=== PATIENT | female | born 1990 | race Caucasian/White ===

== ENCOUNTER → 2016-07-19 | Outpatient (CLI) | payer BC, OTHER ==
[2016-07-19 19:35] LABS: MANUAL MICROSCOPIC REQUIRED? NO; URINE APPEARANCE CLEAR (CLEAR); URINE BILIRUBIN NEG (NEG); URINE COLOR YELLOW; URINE NITRITE NEG (NEG); URINE SPECIFIC GRAVITY 1.025 (1.000-1.030); UROBILINOGEN NEG (NEG)
[2016-07-19 19:41] LABS: REVIEW REQ? NO
== END | disposition home or self-care (01) ==
LOC: C.LABSPEC 17:40
PROVIDERS: ATTEND Obstetrics & Gynecology
DX: O09.219 Supervision of pregnancy with history of pre-term labor, unspecified trimester (principal)

== ENCOUNTER → 2016-07-20 | Outpatient (CLI) | payer OTHER ==
[2016-07-20 11:21] LABS: BASO % 0.1 %; BASO ABS # 0.01 K/uL (0-0.2); COMPLETE YES; EOS % 0.5 %; HEMATOCRIT 40.4 % (37-47); IG% 0.2 %; LYMPH % 22.2 %; MEAN CORPUSCULAR HEMOGLOBIN 31.6 pg (25-34); MEAN CORPUSCULAR HGB CONC 35.1 g/dl (32-36); MEAN PLATELET VOLUME 9.5 fL (7.4-10.4); PLATELET COUNT 329 K/uL (130-400); RED BLOOD COUNT 4.49 M/uL (4.2-5.4); WHITE BLOOD COUNT 8.56 K/uL (4.8-10.8)
[2016-07-22 00:50] LABS: CHLAMYDIA TRACH RNA*** NOT DETECTED (NOT DETECTED); GC (NEIS GONORRHOEAE)RNA** NOT DETECTED (NOT DETECTED)
== END | disposition home or self-care (01) ==
LOC: C.LAB1850 10:32
PROVIDERS: ATTEND Obstetrics & Gynecology
DX: O09.219 Supervision of pregnancy with history of pre-term labor, unspecified trimester (principal)

== ENCOUNTER → 2016-09-18 | Outpatient (CLI) | payer OTHER ==
[~2016-09-18] MED LIST: PRENTAB26 PO
[2016-09-18 13:37] LABS: GTGD 50 Grams
== END | disposition home or self-care (01) ==
LOC: C.LAB1850 10:48
PROVIDERS: ATTEND Obstetrics & Gynecology
DX: O09.212 Supervision of pregnancy with history of pre-term labor, second trimester (principal); Z3A.00 Weeks of gestation of pregnancy not specified

== ENCOUNTER → 2016-12-15 | Outpatient (CLI) | payer OTHER ==
[2016-12-15 11:47] LABS: URINE APPEARANCE CLEAR (CLEAR); URINE BILIRUBIN NEG (NEG); URINE COLOR YELLOW; URINE EPITHELIAL CELL AUTO >30 /lpf (0-5); URINE NITRITE NEG (NEG); URINE SPECIFIC GRAVITY 1.014 (1.000-1.030); UROBILINOGEN NEG (NEG)
[2016-12-15 11:51] LABS: MANUAL MICROSCOPIC REQUIRED? NO; REVIEW REQ? NO
[2016-12-15 13:54] LABS: GTGD 50 Grams
== END | disposition home or self-care (01) ==
LOC: C.LAB1850 10:28
PROVIDERS: ATTEND Obstetrics & Gynecology
DX: O09.212 Supervision of pregnancy with history of pre-term labor, second trimester (principal)

== ENCOUNTER → 2017-02-05 | Outpatient (CLI) | payer OTHER | END | disposition home or self-care (01) | LOC: C.LABSPEC 13:43 | PROVIDERS: ATTEND Obstetrics & Gynecology | DX: O09.213 Supervision of pregnancy with history of pre-term labor, third trimester (principal) ==

== ENCOUNTER 2017-02-24 05:29 | Inpatient (IN) | payer OTHER ==
[~2017-02-24] VITALS: Ht 165.1 cm; Wt 84.1 kg
[2017-02-24] MEDS ORDERED: LACTATED RINGER'S 1000ML 1,000 ML IV PRN (06:19)
[2017-02-24] MEDS ORDERED: LACTATED RINGER'S 1000ML 1,000 ML IV SCH (06:19)
[2017-02-24 06:20] VITALS: Ht 165.1 cm; Wt 84.1 kg
[2017-02-24] MEDS ORDERED: PRENTAB26 PO (06:26)
[2017-02-24 06:55] LABS: HEMATOCRIT 36.5 % (37-47); MEAN CELL VOLUME 92.2 fL (80-100); MEAN CORPUSCULAR HEMOGLOBIN 32.6 pg (25-34); MEAN CORPUSCULAR HGB CONC 35.3 g/dl (32-36); PLATELET COUNT 246 K/uL (130-400); RED BLOOD COUNT 3.96 M/uL (4.2-5.4); WHITE BLOOD COUNT 10.71 K/uL (4.8-10.8)
[2017-02-24] MEDS ORDERED: BUPIVACAINE 0.25% 30 ML VIAL ONE (06:57)
[2017-02-24] MEDS ORDERED: EpHEDrine SULFATE INJ 50 MG/ML AMP ONE (06:57)
[2017-02-24] MEDS ORDERED: FENTANYL 2MCG/ML ROPIV 1.25MG/ML 100ML BAG EPI ONE (06:57)
[2017-02-24] MEDS ORDERED: FENTANYL CITRATE INJ 50 MCG/1 ML 2 ML VIAL ONE (06:58)
[2017-02-24] MEDS ORDERED: LACTATED RINGER'S 1000ML 500 ML IV PRN ×2 (07:55→08:40)
[2017-02-24] MEDS ORDERED: NALOXONE HCL INJ 1 MG in SODIUM CHLORIDE 0.9% 1000ML 1,000 ML IV PRN (07:55)
[2017-02-24] MEDS ORDERED: EpHEDrine SULFATE INJ 50 MG/ML AMP IV PRN (08:00)
[2017-02-24] MEDS ORDERED: ONDANSETRON INJ 2 MG/ML 2 ML VIAL IV PRN (08:00)
[2017-02-24] MEDS ORDERED: NALBUPHINE HCL INJ 10 MG/ML AMP IV PRN (08:00)
[2017-02-24] MEDS ORDERED: FENTANYL 2MCG/ML ROPIV 1.25MG/ML 100ML BAG EPI PRN (08:00)
[2017-02-24] MEDS ORDERED: DiphenhydrAMINE HCL 50 MG/ML VIAL IV PRN (08:00)
[2017-02-24] MEDS ORDERED: NALOXONE HCL 0.4 MG/1 ML VIAL/CARP IV PRN (08:00)
[2017-02-24] MEDS ORDERED: OXYTOCIN 30 UNITS/500ML NSS IV PRN ×2 (08:45→09:30)
[2017-02-24] MEDS ORDERED: LANOLIN OINT EXT PRN ×2 (09:30)
[2017-02-24] MEDS ORDERED: ACETAMINOPHEN/CODEINE 300/30MG TAB PO PRN ×2 (09:30)
[2017-02-24] MEDS ORDERED: ACETAMINOPHEN 325 MG TAB PO PRN (09:30)
[2017-02-24] MEDS ORDERED: SUPERCREAM 0.870 % 15GM JAR EXT PRN (09:30)
[2017-02-24] MEDS ORDERED: BENZOCAINE 20% AER SPR 82.5 GM CAN EXT PRN (09:30)
[2017-02-24] MEDS ORDERED: HYDROCORTISONE ACETATE 25 MG SUPP PR PRN (09:30)
--- NOTE | 2017-02-24 09:39 | DELIVERY SUMMARY ---
DATE OF OPERATION: 02/24/2017 FINDINGS: Viable female with Apgars of 8 and 9, baby delivered spontaneously over a midline second-degree laceration. Cord blood samples obtained. Placenta delivered spontaneously. Laceration repaired with 4-0 Vicryl in routine fashion. Estimated blood loss is 300 mL. LABOR NOTE: This patient is a 26-year-old 2, para 0-1-0-1 with EDC of 05 March at 38+ plus weeks gestational age who presented to labor and delivery with spontaneous rupture of membranes. The patient states the membranes ruptured early this morning with subsequent onset of contractions. No vaginal bleeding. The patient's course has been remarkable for a previous 33 week delivery. Because of this she has been on progesterone injections throughout the second and third trimester. The patient has had a benign course. Blood type is 0+, antibody negative, rubella immune, hepatitis B negative. She had a normal 1-hour Glucola x2 and a negative third trimester beta strep culture. Upon admission, the patient was 4 cm dilated, 80% effaced and -1 station with gross rupture. She was having contractions and was uncomfortable and anesthesia was consulted and an epidural was placed. Following the epidural, the patient progressed to full dilation and began her second stage. She pushed for approximately 10 minutes delivering the viable female . The cord was clamped and cut. Cord blood samples were obtained. Placenta was delivered spontaneously. Inspection of the perineum showed a midline second-degree laceration which was repaired with 4-0 Vicryl. Estimated blood loss 300 mL. Sponge and needle count was correct. I attest to the content of the Intraoperative Record and any orders documented therein. Any exception s are noted below.
[2017-02-24 12:00] VITALS: BP 113/66; PULSE 99; TEMP 36.5
[2017-02-24 15:30] VITALS: BP 120/73; PULSE 85; TEMP 36.5
[2017-02-24] MEDS: IBUPROFEN 600 MG TAB PO PRN ×2 (18:14→22:23)
[2017-02-24 19:30] VITALS: BP 123/70; PULSE 82; TEMP 36.7
[2017-02-24] MEDS: DOCUSATE SODIUM 100 MG CAP PO SCH (20:37)
[2017-02-24 23:50] VITALS: BP 107/69; PULSE 92; TEMP 36.6
[2017-02-25 03:25] VITALS: BP 107/66; PULSE 88; TEMP 36.6
[2017-02-25] MEDS: IBUPROFEN 600 MG TAB PO PRN (03:28)
[2017-02-25 06:35] LABS: HEMATOCRIT 39.5 % (37-47)
[2017-02-25 07:00] VITALS: BP 99/65; PULSE 86; TEMP 36.7; O2SAT 97
--- NOTE | 2017-02-25 07:51 | Progress Note ---
Subjective Feb 25, 2017. Subjective conversation w/ patient (want to go home), physical exam Ambulation: ambulating normally Diet Tolerance: Regular Diet Feeding Type: Breast Feeding Objective Vital Signs Date Time Temp Pulse Resp B/P (MAP) Pulse Ox O2 Delivery O2 Flow Rate FiO2 02/25/17 07:00 36.7 86 16 99/65 (76) 97 Room Air 02/25/17 03:25 36.6 88 16 107/66 (80) Room Air 02/24/17 23:50 36.6 92 18 107/69 (82) Room Air 02/24/17 23:50 Room Air 02/24/17 19:30 36.7 82 20 123/70 (87) Room Air 02/24/17 15:30 Room Air 02/24/17 15:30 36.5 85 20 120/73 (89) Room Air 02/24/17 12:00 36.5 99 22 113/66 (82) Physical Exam General Appearance: WELL-APPEARING, NO APPARENT DISTRESS Fundus: Firm, Non-Tender Extremities: no calf tenderness Laboratory Results Last 24 Hours Test 02/25/17 06:08 Hemoglobin 13.7 g/dL Hematocrit 39.5 % Assessment and Plan Post- Day#: 1 Continue Routine Care: - doing well - desires d/c - instructions given - f/u in 6 weeks
--- NOTE | 2017-02-25 07:52 | Discharge Instructions ---
Discharge Instructions Date of Service Feb 25, 2017. Admission Reason for Admission: Spontaneous Onset Of Labor Discharge Discharge Diagnosis / Problem: same Discharge Goals Goal(s): Routine recovery after delivery Medications Continue Dispensed Medications: supercream, dermaplast, tucks Activity Recommendations Activity Limitations: as noted below . Instructions / Follow-Up Instructions / Follow-Up ACTIVITY RECOMMENDATIONS: * Gradual return to full activity over the next 2-3 weeks. * No lifting - nothing heavier than baby over the next 2-3 weeks. * Do not engage in vigorous exercise, sexual activity or sports until cleared by your physician. * Do not drive or operate any motorized equipment until cleared by your physician. * You may shower/bathe daily. MEDICATIONS: For discomfort or pain, you may use Acetaminophen (Tylenol), Ibuprofen (Advil), or Naproxen (Aleve) following the package directions. For constipation you may use Colace following the package directions. BREAST CARE: If you are not breast feeding: * Wear a supportive bra 24 hours a day for one to two weeks. * Avoid stimulating your breasts and nipples as much as possible during the first few weeks after delivery. * When taking a shower, have the warm water hit your back, not breasts. * When your breasts feel full, apply ice packs. Usually three to four times a day helps ease the discomfort. * Take a mild pain medication (Tylenol / Motrin) when you are uncomfortable. If breast feeding: * Use breast milk to lubricate nipples. Lansinoh cream may be used for sore nipples. You do not need to remove cream prior to breast feeding. If using a different brand of cream, check the label for directions regarding removal of cream prior to nursing. * Wear a supportive bra. * If having problems with breasts or breast feeding, call a corporate health consultant or your health care provider. EPISIOTOMY CARE: After delivery, if you have an episiotomy (stitches), the following steps will ease discomfort and aid healing. * For the first 24 hours after delivery, place ice packs next to your episiotomy to help reduce swelling. * After the first 24 hour-period, sitz baths, either portable or in the tub, are suggested. A shower with a shower arm sprayed over the episiotomy may be comforting. * Ivelises care should be done after each voiding and bowel movement. Squirt warm water from a plastic bottle over the perineum (region of the body between the anus and urinary opening) and pat dry. * Use Dermoplast to ease discomfort. Shake container. [place] directly over the episiotomy. Place a Tucks on a clean sanitary pad next to your episiotomy. SPECIAL CARE INSTRUCTIONS: When you are discharged from the hospital, it is important for you to follow the instructions listed below: * During the first week at home, you should be able to care for yourself and your baby. In addition, the usual light household activities are encouraged. * Limit your activities to the way you feel. Do not try to clean the house or move furniture. Be sensible. * If you actively engage in sports and have done so up until the time of your delivery, you may resume these activities as soon as you feel able. This may take up to one month or even longer. Use good judgment. * Continue to take your vitamins for at least six weeks after the of your baby. * Your diet need not be limited unless you were on a special diet before your delivery. Breast-feeding mothers need around 2500 calories per day and at least 64-80 ounces of fluid per day (8 to 10 glasses). * You should eat foods from the four major food groups. Crash diets or fad diets are to be avoided. Eating lean meats, fresh fruits and vegetables, low-fat dairy products, high fiber foods and a regular exercise program, will help you get back to your pre- weight without putting your health at risk. * Constipation is sometimes a problem after delivery. Take a mild laxative as needed. If breast feeding, Milk of Magnesia is acceptable to use. You may use a suppository or Fleets enema if no episiotomy. * A daily shower or tub bath is suggested. Be sure to thoroughly and gently dry the perineum. * A bloody vaginal discharge will usually continue until around four weeks post . A small amount of bleeding may continue for as long as six weeks. Vaginal discharge changes from the bright red bleeding after delivery to pink then brownish and finally yellowish-pink before becoming white and disappearing. * Bleeding may increase with activity. Your first period may come in 4-8 weeks. If you are breast feeding, your period may be delayed even longer. * [place] (sex) can begin whenever both you and your partner feel comfortable and do not have any form of genital infection. It is recommended that you wait at least six weeks for internal and external healing to occur. If you have questions, please talk to your health care practitioner. A condom should be used to prevent infection and . * Foreplay, gentle intercourse and lubrication is very important the first several times to prevent pain. A water-based lubricant such as K-Y jelly or Astroglide may be used. * If you have RH negative blood and your baby is RH positive, you will receive RHOGAM by injection prior to discharge. The nurse will give you a card to keep with you that has the date and place that you received RHOGAM after delivery. * During your care, you had a Rubella screen done to check for the presence of rubella antibodies in your blood. If your test was negative, you will receive a Rubella vaccine prior to discharge. This vaccine may cause a fever, soreness at the injection site and flu-like symptoms. If these symptoms persist, notify your health care practitioner. is not advised for one month after a Rubella vaccine. * Verbalizes understanding of car seat law as reviewed with patient nursing. * Car Seat hand-out given and reviewed with patient by nursing. * Shaken baby information reviewed with patient by nursing. Call you doctor if: * Heavy bleeding (saturating several pads an hour) or passing clots the size of your fist. * A fever >101 degrees F (38.3 degrees C) on two occasions four hours apart and /or chills. * Unusual pain in the pelvic or vaginal areas. * "Baby Blues" lasting longer than two weeks. If you have any questions or concerns, call your health care practitioner at . FOLLOW UP VISIT: * Please call the office at to schedule a 6 week examination. It is important you keep this appointment. It is important for you to make arrangements for either yearly or twice yearly check-ups thereafter. Current Hospital Diet Patient's current hospital diet: Regular OB Diet Discharge Diet Recommended Diet: Regular OB Diet Procedures Procedures Performed: Vaginal Delivery Pending Studies Studies pending at discharge: no Medical Emergencies . Who to Call and When: Medical Emergencies: If at any time you feel your situation is an emergency, please call 911 immediately. . Non-Emergent Contact Non-Emergency issues call your: Vice President Investor Relations Call Non-Emergent contact if: you have a fever, temperature is above 100.5 . . "Provider Documentation" section prepared by Pedro Avila. . VTE Core Measure Inpt VTE Proph given/why not?: Treatment not indicated
[2017-02-25] MEDS ORDERED: PRENATAL VITAMIN TAB PO SCH (08:00)
[2017-02-25] MEDS ORDERED: FERROUS SULFATE 325 MG TAB PO SCH (08:00)
[2017-02-25] MEDS: DOCUSATE SODIUM 100 MG CAP PO SCH (08:02)
[2017-02-25 09:57] VITALS: BP_DIAS 65; PULSE 86; TEMP 36.7
[2017-02-25] MEDS ORDERED: DIPHTHERIA/TETANUS/PERTUSSIS 0.5 ML SYR/VIAL IM. ONE (10:00)
[2017-02-25] MEDS ORDERED: BISACODYL 5 MG TABEC PO SCH (20:00)
== END 2017-02-25 10:56 | disposition home or self-care (01) | DRG 775 ==
LOC: C.OPB 05:29 → C.LD 05:30 → C.OPB 06:22 → C.OBG 12:08
PROVIDERS: ADMIT Obstetrics & Gynecology; ATTEND Obstetrics & Gynecology
PROC: 10E0XZZ Delivery of Products of Conception, External Approach (ICD-10-PCS; principal; 2017-02-24)
PROC: 0KQM0ZZ Repair Perineum Muscle, Open Approach (ICD-10-PCS; principal; 2017-02-24)
DX: O70.1 Second degree perineal laceration during delivery (principal); Z37.0 Single live birth; O09.213 Supervision of pregnancy with history of pre-term labor, third trimester; Z3A.38 38 weeks gestation of pregnancy

== ENCOUNTER → 2017-04-12 | Outpatient (CLI) | payer OTHER | END | disposition home or self-care (01) | LOC: C.PAPS 17:47 | PROVIDERS: ATTEND Obstetrics & Gynecology | DX: Z12.4 Encounter for screening for malignant neoplasm of cervix (principal) ==

== ENCOUNTER 2018-09-26 12:14 | Inpatient (IN) ==
[2018-09-26] MEDS ORDERED: OXYTOCIN 30 UNITS/500 ML BAG IV PRN ×3 (12:24→18:22)
--- NOTE | 2018-09-26 12:28 | History & Physical Report ---
Date of Service September 26, 2018 38 weeks 1 day sent from the office as was 6 cm by a check in the office by physician and AmniSure was positive the patient feels as though she might of been leaking for at least 2 days it is only been small amounts but she was unsure she is not minh regularly states her baby is moving and that she is not having bleeding her graph her is only complicated by being on injections of progesterone for prior she is group B strep negative Assessment & Plan (1) PROM (premature rupture of membranes): Patient is potentially been ruptured for up to 2 days however we are unsure as she did not have a definitive story for leakage and she was positive in the office today and she is 5 cm we will begin Pitocin induction patient wishes an epidural as well group B strep negative and no fever and no signs of chorioamnionitis thus no antibiotics are indicated at this time History of Present Illness Primary Care Provider: NO PCP Allergies Allergy/AdvReac Type Severity Reaction Status Date / Time No Known Allergies Allergy Unverified 02/24/17 06:25 Home Medications Home Medications Medication Instructions Recorded Confirmed Type Multivit/Min/Iron/Fol Ac/Pren 1 tab PO DAILY #0 tab 02/24/17 History ( Vitamin) Physical Exam Constitutional: WD/WN, vitals as above Respiratory: normal respiratory effort, lungs clear to auscultation Cardiovascular: RRR, no murmur, no edema Genitourinary: OB Exam Abdomen: + vertex Manual OB Exam: + cervical dilation 5 cm, + cervical effacement 80% and + station -2
[2018-09-26 12:58] LABS: Hematocrit (blood only) 35.9 % (37-47); Hemoglobin 13.1 g/dL (12.0-16.0); Mean Corpuscular Volume 90.9 fL (80-100); Mean Platelet Volume 8.7 fL (7.4-10.4); Platelet Count 232 K/uL (130-400); RDW Coefficient of Variation 13.4 % (11.5-14.5); RDW Standard Deviation 44.1 fL (36.4-46.3); Red Blood Count 3.95 M/uL (4.2-5.4); White Blood Count 10.39 K/uL (4.8-10.8)
[2018-09-26 13:01] LABS: Mean Corpuscular Hgb Conc 36.5 g/dL (32-36)
[2018-09-26] MEDS: LACTATED RINGER'S 1,000 ML IV PRN ×2 (13:48→15:44)
[2018-09-26] MEDS ORDERED: fentaNYL citrate 100 MCG/2 ML VIAL ONE (14:56)
[2018-09-26] MEDS ORDERED: ePHEDrine sulfate 50 MG/ML AMP ONE (14:56)
[2018-09-26] MEDS ORDERED: BUPIVACAINE 0.25% 30 ML VIAL ONE (14:56)
[2018-09-26] MEDS ORDERED: fentaNYL 2MCG/ML ROPIV 1.25MG/ML 100 ML BAG EPI ONE (14:57)
--- NOTE | 2018-09-26 15:17 | Anesthesiology Consultation ---
Date of Service September 26, 2018 Assessment & Plan (1) Encounter for pre-operative examination: Chart Review Chart Review: Acceptable Risk for Labor Epidural ASA ASA2 Proposed Anesthesia Anesthesia Type: CSE History Height/Weight Height: 5 ft 5 in Weight: 89.358 kg Allergies Allergy/AdvReac Type Severity Reaction Status Date / Time No Known Allergies Allergy Verified 09/26/18 13:38 Medications Home Medications Medication Instructions Recorded Confirmed Last Taken vit-iron fum-folic ac 1 tab PO DAILY 09/26/18 09/26/18 09/25/18 21:30 [ Vitamin] Active Medications Generic Name Dose Route Start Last Admin Trade Name Freq PRN Reason Stop Dose Admin Lactated Ringer's 1,000 mls @ 125 mls/hr 09/26/18 13:30 09/26/18 15:00 Lr IV 09/28/18 13:29 999 mls/hr .Q8H PRN Infusion L&D Protocol Protocol Oxytocin 30 units in 500 mls @ 4 mls/hr 09/26/18 12:25 09/26/18 15:00 Pitocin IV 10/26/18 12:24 0.24 units/hr .Q24H PRN 4 mls/hr Labor Induction/Augmentation Titration Protocol 0.24 UNITS/HR Past Medical History Medical History Healthy female Social History Smoking Status: Never smoker Hx Alcohol Use: No Hx Substance Use: No substance use type: does not use Physical Exam Vital Signs Last Vital Signs Temp 37.1 C 09/26/18 13:03 Pulse 96 H 09/26/18 14:08 Resp 20 09/26/18 13:03 BP 108/63 09/26/18 14:08 Testing Laboratory Results Laboratory Tests 09/26/18 12:43 Hgb 13.1 Plt Count 232
[2018-09-26] MEDS ORDERED: DiphenhydrAMINE HCL 50 MG/ML VIAL IV PRN (15:50)
[2018-09-26] MEDS ORDERED: NALOXONE HCL 1 MG in SODIUM CHLORIDE 0.9% 1000ML 1,000 ML IV PRN (15:50)
[2018-09-26] MEDS ORDERED: ePHEDrine sulfate 50 MG/ML AMP IV PRN (15:50)
[2018-09-26] MEDS ORDERED: NALOXONE HCL 0.4 MG/1 ML VIAL/CARP IV PRN (15:50)
[2018-09-26] MEDS ORDERED: fentaNYL 2MCG/ML ROPIV 1.25MG/ML 100 ML BAG EPI PRN (15:50)
--- NOTE | 2018-09-26 18:00 | Procedure Note ---
Vaginal Delivery Summary Date of Service September 26, 2018 Spontaneous vaginal delivery in occiput anterior position over a second-degree tear she pushed for a total of 1 contraction delivered a baby with no nuchal cord no meconium noticed mouth in the nares suctioned at delivery of the head gentle traction no excessive force live vigorous cord clamped and cut cord gases obtained cord blood obtained placenta removed with gentle traction IV Pitocin started second-degree tear was very small but repaired with 3-0 Vicryl sponge and instrument counts were correct estimated blood loss 250 mils
[2018-09-26] MEDS ORDERED: OXYCODONE/ACETAMINOPHEN 5mg/325mg TAB PO PRN (18:22)
[2018-09-26] MEDS ORDERED: ACETAMINOPHEN 325 MG TAB PO PRN (18:22)
[2018-09-26] MEDS ORDERED: HYDROCORTISONE ACETATE 25 MG SUPP PR PRN (18:22)
[2018-09-26] MEDS ORDERED: SUPERCREAM 0.870% 15 GM JAR EXT PRN (18:22)
[2018-09-26] MEDS ORDERED: DIPHTHERIA/TETANUS/PERTUSSIS 0.5 ML SYR/VIAL IM ONE (18:22)
[2018-09-26] MEDS ORDERED: BENZOCAINE 20% AER SPR 82.5 GM CAN EXT PRN (18:22)
[2018-09-26 18:35] LABS: Base Excess Cord Venous Blood -1.8 mEq/L (-7.7-1.9); Cord Venous Blood HCO3 22 mmol/L (18.4-26.8); Cord Venous Blood PCO2 33 mmHg (30.4-57.2); Cord Venous Blood PO2 43 mmHg (14.1-43.3); Cord Venous Blood pH 7.44 (7.20-7.44); O2 Saturation Cord Venous Bld 84.2 % (<68)
[2018-09-26 18:43] LABS: Base Excess Cord Arterial Bld -1.4 mEq/L (-9-1.8); CO2 Cord Arterial Blood 45 mmHg (39.1-73.5); HCO3 Cord Arterial Blood 24 mmol/L (19.7-28.5); PO2 Cord Arterial Blood 21.5 % (4.1-31.7); pH Cord Arterial Blood 7.35 (7.1-7.38)
--- NOTE | 2018-09-26 18:52 | Anesthesia Procedure Note ---
Date of Service September 26, 2018 Anesthesia Post Epidural Note Vital Signs Vital Signs: Temp Pulse Resp BP Pulse Ox 09/26/18 18:42 94 H 109/58 L 09/26/18 18:30 18 09/26/18 18:27 99 H 117/67 09/26/18 18:12 96 H 107/62 09/26/18 17:58 96 H 107/59 L 09/26/18 17:47 95 H 125/95 09/26/18 17:46 107 H 95 09/26/18 17:41 109 H 96 09/26/18 17:36 104 H 107/71 93 09/26/18 17:31 100 H 93 09/26/18 17:27 107 H 110/73 09/26/18 17:26 102 H 95 09/26/18 17:21 102 H 97 09/26/18 17:17 101 H 110/71 09/26/18 17:16 102 H 94 09/26/18 17:11 100 H 92 09/26/18 17:08 98 H 110/53 L 09/26/18 17:06 91 H 94 09/26/18 17:01 89 95 09/26/18 16:57 97 H 104/57 L 09/26/18 16:56 105 H 94 09/26/18 16:51 92 H 93 09/26/18 16:49 95 H 105/51 L 09/26/18 16:46 92 H 94 09/26/18 16:41 105 H 94 09/26/18 16:37 83 100/55 L 09/26/18 16:36 82 93 09/26/18 16:32 89 91 09/26/18 16:31 89 93 09/26/18 16:26 95 H 95/53 L 92 09/26/18 16:21 89 93 09/26/18 16:17 88 99/55 L 09/26/18 16:16 95 H 93 09/26/18 16:11 90 94 09/26/18 16:07 90 100/59 L 09/26/18 16:06 93 H 94 09/26/18 16:01 89 95 09/26/18 15:56 89 98/56 L 95 09/26/18 15:54 100 H 101/57 L 09/26/18 15:52 89 97/53 L 09/26/18 15:51 99 H 96 09/26/18 15:50 104 H 102/55 L 09/26/18 15:48 37.1 C 90 22 101/52 L 09/26/18 15:46 90 99/54 L 96 09/26/18 15:44 94 H 95/54 L 09/26/18 15:42 97 H 88/51 L 09/26/18 15:41 98 H 93 09/26/18 15:40 88 97/54 L 09/26/18 15:38 90 96/52 L 09/26/18 15:36 101 H 94 09/26/18 15:31 92 H 95 09/26/18 15:26 104 H 95 09/26/18 15:21 92 H 97 09/26/18 15:16 98 H 94 09/26/18 14:08 96 H 108/63 09/26/18 13:03 37.1 C 20 09/26/18 12:31 100 H 104/57 L Notes Mental Status: alert / awake / arousable and participated in evaluation Nausea / Vomiting: adequately controlled Pain: adequately controlled Airway Patency, RR, SpO2: stable & adequate BP & HR: stable & adequate Hydration State: stable & adequate Neuraxial Anesthesia: was administered and sensory block is resolving Anesthetic Complications: no major complications apparent Epidural: Removed without complications and With tip intact
[2018-09-26] MEDS: DOCUSATE SODIUM 100 MG CAP PO SCH (21:21)
[2018-09-26] MEDS: IBUPROFEN 600 MG TAB PO PRN (23:42)
[2018-09-27] MEDS: IBUPROFEN 600 MG TAB PO PRN ×3 (04:25→13:12)
--- NOTE | 2018-09-27 07:11 | Obstetrical Progress Note ---
Date of Service <Feliz Cox MD - Last Filed: 09/27/18 07:11> September 27, 2018 Assessment & Plan <Feliz Cox MD - Last Filed: 09/27/18 07:11> (1) (spontaneous vaginal delivery): 27 year old day 1 s/p at 38 weeks and 1 day after induction for PROM 09/26 * Vital Signs Reviewed and WNL * Blood type O+ GBS-, Rubella immune * Pain well controlled * Hemoglobin 13.1 pre op; bleeding light today * Patient ambulating and breast feeding without difficulty today *Went over all d/c instructions with patient. Subjective <Feliz Cox MD - Last Filed: 09/27/18 07:11> Ambulation: ambulating normally Voiding: no voiding problems Passing Gas:: Yes Diet Tolerance:: regular diet Lochia:: Small Feeding Type:: breast feeding Current Pain Level(1-10): 2 Leticia Jim doing well this morning, wishes to go home if peds signs off on her baby by tonight. Constitutional: no fever and no chills Respiratory: no cough and no dyspnea Cardiovascular: no chest pain, no dyspnea and no calf pain Gastrointestinal: + abdominal pain (crampy); no nausea and no vomiting Physical Exam <Feliz Cox MD - Last Filed: 09/27/18 07:11> Vital Signs (Past 24 Hours) Last Vital Signs Temp 36.5 C 09/27/18 04:10 Pulse 84 09/27/18 04:10 Resp 17 09/27/18 04:10 BP 106/69 09/27/18 04:10 Pulse Ox 95 09/27/18 04:10 Constitutional well developed, well nourished, cooperative and comfortable Respiratory normal respiratory effort, lungs clear to auscultation Cardiovascular Rate/Rhythm: regular rate and regular rhythm Heart Sounds: no click, no gallop, no murmur and no cardiac rub Extremities: no calf tenderness Gastrointestinal (Abdomen) Percussion/Palpation: abdomen soft; abdomen nontender Genitourinary OB Exam Abdomen: + fundal height Fundus: + firm and + relation to umbilicus (At umbilicus); not tender <Trang Dave MD, FACOG - Last Filed: 09/27/18 07:12> Co-Signing Physician Notes Resident Physician Supervision Note: I interviewed and examined the patient. Discussed with Dr. Cox and agree with findings and plan as documented in the note. Any exceptions or clarifications are listed here: [None] Documented By: Trang Dave MD, FACOG Resident Activity Tracking <Feliz Cox MD - Last Filed: 09/27/18 07:11> Resident Involvement: Resident Care Provided Care Provided: OB Delivery
[2018-09-27 07:16] LABS: Hematocrit (blood only) 34.1 % (37-47); Hemoglobin 11.9 g/dL (12.0-16.0); Mean Corpuscular Hgb Conc 34.9 g/dL (32-36); Mean Corpuscular Volume 90.9 fL (80-100); Platelet Count 216 K/uL (130-400); RDW Coefficient of Variation 13.5 % (11.5-14.5); RDW Standard Deviation 44.4 fL (36.4-46.3); Red Blood Count 3.75 M/uL (4.2-5.4); White Blood Count 11.03 K/uL (4.8-10.8)
[2018-09-27] MEDS ORDERED: PRENATAL VITAMIN 1 TAB ONE (07:26)
[2018-09-27] MEDS: DOCUSATE SODIUM 100 MG CAP PO SCH (07:37)
[2018-09-27] MEDS ORDERED: NON-FORMULARY MEDICATION (Prenatal Vit-Iron Fum-Folic Ac [Prenatal Vitamin] 1 TAB) PO SCH (09:00)
[2018-09-27] MEDS ORDERED: PRENATAL VITAMIN 1 TAB PO SCH (09:00)
[2018-09-27] MEDS ORDERED: BISACODYL 5 MG TABEC PO SCH (20:00)
[2018-09-28] MEDS ORDERED: BISACODYL 10 MG SUPP PR PRN (06:00)
== END 2018-09-27 19:40 | disposition home or self-care (01) | DRG 807 ==
LOC: OPB 12:14 → 4S1 12:18 → 4S2 20:50

== ENCOUNTER 2021-06-22 07:49 | Inpatient (IN) ==
[2021-06-22] MEDS ORDERED: OXYTOCIN 30 UNITS/500 ML BAG IV PRN ×2 (08:07)
[2021-06-22 08:54] LABS: Hematocrit (blood only) 37.4 % (37-47); Hemoglobin 13.2 g/dL (12.0-16.0); Mean Corpuscular Hgb Conc 35.3 g/dL (32-36); Mean Corpuscular Volume 93.5 fL (80-100); Mean Platelet Volume 9.5 fL (7.4-10.4); Platelet Count 253 K/uL (130-400); RDW Coefficient of Variation 13.5 % (11.5-14.5); RDW Standard Deviation 46.1 fL (36.4-46.3); White Blood Count 10.62 K/uL (4.8-10.8)
--- NOTE | 2021-06-22 09:12 | History & Physical Report ---
Date of Service June 22, 2021 Assessment & Plan (1) Encounter for induction of labor: Plan: 30yo at 40 weeks 1 day GA presents for IOL. - Epidural placed, followed by [facility] - Labor: pit - Vitals: afebrile, mildly tachycardic; monitor - Dilation: 7; Effacement: 80; Station: -2 (2) History of PROM in previous , currently : Admission and Anticipated Discharge Date Admission Date: June 22, 2021 History of Present Illness Chief Complaint: IOL Primary Care Provider: NO PCP 30yo at 40 weeks 1 day GA presents for IOL. Membranes stripped yesterday in clinic. Contractions: irregular for last couple weeks Vaginal Bleeding: no Leakage of fluid: no Movement: yes and Delivery Plans (+) COVID test 05/13/21 symptoms started 05/11/21 *not vaccinated* History of PROM in previous -32 weeks PROM *rebekah used throughout this until 36 weeks Uncomplicated course thus far. Medical History Medical History: Diabetes: Neg, Hypertension: Neg, Heart Disease: Neg, Autoimmune Disease: Neg, Kidney Disease/UTI: Neg, Neurologic/Epilepsy: Neg, Psychiatric: Neg, Depression/PPD: Neg, Hepatitis/Liver Disease: Neg, Varicosities/Phlebitis: Neg, Thyroid Dysfunction: Neg, Trauma/Violence: Neg, History of Blood Transfusion: Neg, Hematologic Disorders: Neg, GI Disorders: Neg, Dermatologic Disorders: Neg, D (Rh) Sensitized: Neg, Pulmonary(TB, Asthma): Neg, Seasonal Allergies: Neg, Drug/Latex Allergic Reactions: Neg, Breast: Neg, INSPECTOR OPEN DIE Surgeries: Neg, Operations/Hospitalizations(Year/reason): Pos ([place] teeth, hand surgery), Anesthesia Complications: Neg, Hx of abnml PAP: Neg, Uterine Anomaly/NADYA: Neg, Infertilitiy: Neg, ART treatment: Neg, Complications: Neg, Cancer: Neg, Relevant Family Hx: Pos (SEE PFSH) and Other: Pos (+chicken pox) Tobacco: Denies use Alcohol: Denies use Illicit/Recreational Drugs: Denies use Infection History & Risk Profile Infection History: Hx Chlamydia: No, Hx Genital Herpes: No, Hx Gonorrhea: No, Hx Hepatitis: No, Hx HIV/AIDS: No, Hx Human Papilloma Virus (HPV): No, Hx Syphilis: No, Hx Tuberculosis: No, Rash or viral illness since LMP: No and Prior GBS infected child: No GBS negative lab results: OB Labs: Blood Type O Positive 11/11/20 Antibody Screen NEGATIVE 11/11/20 Hemoglobin 12.3 g/dL (12.0-16.0) 03/30/21 Hematocrit 35.9 % (37-47) L 03/30/21 Mean Corpuscular Volume 89.0 fL (80-100) 11/11/20 Platelet Count 323 K/uL (130-400) 11/11/20 Rubella IgG Antibody Immune (Immune) 11/11/20 Rapid Plasma Reagin Nonreactive (Nonreactive) 11/11/20 Hepatitis B Surface Antigen Neg (Neg) 11/11/20 HIV (1&2) Ab and P24 Ag, 4th Gener Neg (Neg) 11/11/20 Glucose 1 Hour 50 gm Load 111 mg/dl (70-130) 03/30/21 OB Optional Labs: Chlamydia trachomatis RNA NOT DETECTED (NOT DETECTED) 11/11/20 Neisseria gonorrhoeae RNA NOT DETECTED (NOT DETECTED) 11/11/20 Labs Reviewed: declines cfDNA declined quad Allergies Allergy/AdvReac Type Severity Reaction Status Date / Time No Known Allergies Allergy Verified 06/21/21 11:03 Home Medications Medication Instructions Recorded Confirmed Type prenat.vits,shazia,[id number] PO 11/03/20 06/21/21 History Patient History Medical History 32 weeks gestation of Encounter for pre-operative examination Healthy female History of chicken pox labor PROM (premature rupture of membranes) (spontaneous vaginal delivery) Surgical History Hx of hand surgery Hx of oral surgery Family History Grandmother (Paternal) Thyroid disease Grandfather (Maternal) Cancer Denies family history of Ovarian cancer Prostate cancer Breast cancer Colorectal cancer Social History (Updated 11/03/20 @ 15:14 by Ramya Guardado RN) Smoking Status: Never smoker Second Hand Exposure: No; Do You Dip or Chew Tobacco: No; Hx Alcohol Use: No Hx Substance Use: No Preferred Language: Japanese Communication Ability: Effective Visual Impairment: No Limitations Hearing Ability: Normal Developer Support Engineer Required: No Beliefs That Will Affect Care: None marital status: marital status details: Nael Jim (27) [phone] Current Living Situation: Spouse and Family Current Living Situation Comment: lives with family, 1 dog. current occupational status: unemployed current occupation: Homemaker Other Information That Helps Us Care for You: No Feels Safe at Home: Yes Safety Concerns: Feels Safe At This Time Assistive Devices: None Review of Systems Constitutional: denies fevers, chills, fatigue HEENT: denies congestion, sore throat CV: denies chest pain, palpitations Resp: denies shortness of breath, cough GI: denies abnormal abdominal pain, nausea, vomiting, constipation, diarrhea : denies pain with urination, change in urinary frequency Musculoskeletal: denies recent injury Skin: denies new rash Neuro: denies new numbness, tingling, weakness Physical Exam Physical Exam: General: Alert, oriented, no acute distress Cardiac: Regular rate and rhythm. No murmurs appreciated. Respiratory: Clear to auscultation b/l with good air flow entry, symmetric chest rise and fall. No wheezes or crackles. No increased work of breathing or accessory muscle use Abdomen: Gravid, soft, nontender. No guarding or CVA tenderness Skin: No rashes or lesions Extremities: Warm, dry, well-perfused. No lower extremity edema, erythema or swelling. No calf tenderness. Resident Activity Tracking Resident Involvement: Resident Care Provided Care Provided: OB Delivery
[2021-06-22] MEDS: LACTATED RINGER'S 1,000 ML IV PRN ×3 (09:35→11:59)
[2021-06-22] MEDS ORDERED: BUPIVACAINE 0.25% 30 ML VIAL ONE (09:54)
[2021-06-22] MEDS ORDERED: SODIUM CHLORIDE 0.9% INJ 10 ML VIAL ONE (09:54)
[2021-06-22] MEDS ORDERED: ePHEDrine sulfate 50 MG/ML AMP ONE (09:54)
[2021-06-22] MEDS ORDERED: fentaNYL 2MCG/ML ROPIVACAINE 1.25MG/ML 100 ML BAG EPI ONE (09:55)
[2021-06-22] MEDS ORDERED: fentaNYL citrate 100 MCG/2 ML VIAL ONE (09:55)
--- NOTE | 2021-06-22 10:12 | Anesthesiology Consultation ---
Date of Service June 22, 2021 Assessment & Plan (1) Encounter for pre-operative examination: Chart Review Chart Review: Acceptable Risk for Surgery and Patient NOT seen in Pre Admission Testing Consults Requested none History Height/Weight Height: 5 ft 5 in Weight: 95.708 kg Allergies Allergy/AdvReac Type Severity Reaction Status Date / Time No Known Allergies Allergy Verified 06/21/21 11:03 Medications Home Medications Medication Instructions Recorded Confirmed Last Taken prenat.vits,shazia,[id number] PO 11/03/20 06/21/21 Unknown Active Medications Generic Name Dose Route Start Last Admin Trade Name Freq PRN Reason Stop Dose Admin Oxytocin 30 units in 500 mls @ 2 mls/hr 06/22/21 08:07 06/22/21 10:00 Pitocin IV 06/24/21 08:06 0.12 units/hr .Q24H PRN 2 mls/hr Labor Induction/Augmentation Administration Protocol 0.12 UNITS/HR Lactated Ringer's 1,000 mls @ 125 mls/hr 06/22/21 08:07 06/22/21 09:35 Lr IV 06/24/21 08:06 999 mls/hr .Q8H PRN Administration L&D Protocol Protocol Past Medical History Medical History 32 weeks gestation of Encounter for pre-operative examination Healthy female History of chicken pox labor PROM (premature rupture of membranes) (spontaneous vaginal delivery) Past Family History Family History Grandmother (Paternal) Thyroid disease Grandfather (Maternal) Cancer Denies family history of Ovarian cancer Prostate cancer Breast cancer Colorectal cancer Past Surgical History Surgical History Hx of hand surgery Hx of oral surgery Social History Smoking Status: Never smoker Do You Dip or Chew Tobacco: No Hx Alcohol Use: No Hx Substance Use: No substance use type: does not use Physical Exam Vital Signs Last Vital Signs Temp 98.2 F 06/22/21 08:54 Pulse 89 06/22/21 10:04 Resp 18 06/22/21 08:54 BP 101/56 L 06/22/21 10:04 Testing Laboratory Results 06/22/21 08:25
--- NOTE | 2021-06-22 10:14 | Labor Progress Brief Note ---
Date of Service June 22, 2021 Subjective Patient met on arrival, had just been re-roomed in [facility]. Noted mucus plug and bloody show overnight, no labor signs otherwise, no ROM. Good FM. Assessment & Plan (1) Encounter for induction of labor: Plan: IOL @ term scheduled yesterday due to advanced dilation. GBS neg. Patient wants to ensure she gets epidural prior to delivery. Encouraged to get it placed then RN's will notify me, after which I can break her water. Pitocin already ordered and can begin any time. Admission and Anticipated Discharge Date Admission Date: June 22, 2021 Physical Exam Genitourinary: /-2 Intact FHT Cat 1 [place] quiet Results & Data ([facility]) Vital Signs (Past 12 Hours) Vital Signs Temp Pulse Resp BP 06/22/21 10:04 89 101/56 L 06/22/21 08:54 98.2 F 18 Coding Level of Care Code None Diagnoses Encounter for induction of labor Z34.90
[2021-06-22] MEDS ORDERED: NALOXONE HCL 0.4 MG/1 ML VIAL/CARP IV PRN (11:00)
[2021-06-22] MEDS ORDERED: fentaNYL 2MCG/ML ROPIVACAINE 1.25MG/ML 100 ML BAG EPI PRN (11:00)
[2021-06-22] MEDS ORDERED: diphenhydrAMINE 50 MG/ML VIAL IV PRN (11:00)
[2021-06-22] MEDS ORDERED: NALOXONE HCL 1 MG in SODIUM CHLORIDE 0.9% 1000ML 1,000 ML IV PRN (11:00)
[2021-06-22] MEDS ORDERED: NALBUPHINE HCL INJ 10 MG/ML AMP IV PRN (11:00)
[2021-06-22] MEDS: ePHEDrine sulfate 50 MG/ML AMP IV PRN ×2 (11:44→11:56)
--- NOTE | 2021-06-22 14:22 | Delivery Summary ---
Vaginal Delivery Summary Date of Service June 22, 2021 Vaginal Delivery Summary DIAGNOSES: 1. [place] intrauterine at 40w1d gestation. 2. Induction of Labor. 3. Group B Streptococcus Neg. PROCEDURE: Spontaneous vaginal delivery without laceration. SURGEON: Oly Ospina MD. MANAGER MALL: None. ESTIMATED BLOOD LOSS: 350 mL. COMPLICATIONS: None. PLACENTA: Spontaneous and intact with a 3-vessel cord. DISPOSITION: Stable to labor and delivery. DESCRIPTION: The patient pushed well and brought the head to in MACIEJ position. The infant's head was allowed to deliver with contraction force and no further active pushing, with the perineum protected during this time. There was no nuchal cord. The left shoulder was anterior. The shoulders and body delivered on the third maternal pushing effort after this point, with Yumiko position employed, thus a mild shoulder dystocia. The infant was placed on the maternal abdomen. It was vigorous and moving all extremities, and making respiratory efforts. The cord was doubly clamped by the MD and then cut by the FOB. The placenta delivered spontaneously and was noted to be intact and with a 3VC. The cervix, vagina and perineum were examined and were found to be without defect requiring repair. The fundus was firm and lochia minimal immediately after delivery. [facility] Vaginal Delivery Charge Vaginal Delivery Codes: 97532 global code for the antepartum, delivery, and post-
[2021-06-22] MEDS ORDERED: oxyCODONE/ACETAMINOPHEN 5mg/325mg TAB PO PRN (14:40)
[2021-06-22] MEDS ORDERED: BENZOCAINE 20% AER SPR 82.5 GM CAN EXT PRN (14:40)
[2021-06-22] MEDS ORDERED: DIPHTHERIA/TETANUS/PERTUSSIS 0.5 ML SYR/VIAL IM ONE (14:40)
[2021-06-22] MEDS ORDERED: HYDROCORTISONE ACETATE 25 MG SUPP PR PRN (14:40)
[2021-06-22] MEDS ORDERED: ACETAMINOPHEN 325 MG TAB PO PRN (14:40)
--- NOTE | 2021-06-22 16:27 | Anesthesia Procedure Note ---
Date of Service June 22, 2021 Anesthesia Post Epidural Note Vital Signs Vital Signs: Temp Pulse Resp BP Pulse Ox 97.9 F 109 H 20 107/54 L 99 06/22/21 13:50 06/22/21 16:12 06/22/21 16:15 06/22/21 16:12 06/22/21 14:13 Notes Mental Status: alert / awake / arousable and participated in evaluation Nausea / Vomiting: adequately controlled Pain: adequately controlled Airway Patency, RR, SpO2: stable & adequate BP & HR: stable & adequate Hydration State: stable & adequate Neuraxial Anesthesia: was administered and sensory block is resolving Anesthetic Complications: no major complications apparent and Pt Satisfied with anesthetic care Epidural: Removed without complications and With tip intact
[2021-06-22] MEDS: IBUPROFEN 600 MG TAB PO PRN (19:20)
[2021-06-22] MEDS: DOCUSATE SODIUM 100 MG CAP PO SCH (19:21)
[2021-06-23] MEDS: IBUPROFEN 600 MG TAB PO PRN ×4 (00:12→13:16)
[2021-06-23 06:52] LABS: Hematocrit (blood only) 36.1 % (37-47); Hemoglobin 12.5 g/dL (12.0-16.0)
--- NOTE | 2021-06-23 07:05 | Obstetrical Progress Note ---
Date of Service June 23, 2021 Assessment & Plan (1) Encounter for care and examination after delivery: Plan: 30yo PPD 1 s/p at 40 weeks 1 day -Continue routine care -Vitals reviewed- afebrile -GBS neg -Encourage ambulation, regular diet -Pain control with ibuprofen, acetaminophen PRN -Encourage -Hgb 13.2 (06/22) -f/u in 6 weeks with OB; dc this afternoon (2) History of PROM in previous , currently : Admission and Anticipated Discharge Date Admission Date: June 22, 2021 Supervising Physician Co-Signing Physician Notes Resident Physician Supervision Note: I interviewed and examined the patient. Discussed with Dr. Moreau and agree with findings and plan as documented in the note. Any exceptions or clarifications are listed here: [ ] Documented By: Oly Ospina MD, FACOG Subjective Ambulation: yes Voiding: yes Passing Gas: yes BM: not yet Diet Tolerance: regular w/o N/V Lochia: small Feeding Type: breast Current Pain Level(1-10): 0, mild cramping with feeds Review of Systems Review of Systems: Denies fevers/chills. Denies dyspnea, cough. Denies chest pain. Denies breast pain or discharge. Denies dysuria. Denies headache. Denies back pain. Physical Exam Physical Exam: General: Alert, oriented, no acute distress Cardiac: Regular rate and rhythm. No murmurs appreciated. Respiratory: Clear to auscultation b/l with good air flow entry, symmetric chest rise and fall. No wheezes or crackles. No increased work of breathing or accessory muscle use Abdomen: Soft, appropriate tenderness, nondistended. +BS. Fundus firm and palpable at 1 cm below umbilicus. No guarding or rebound. Skin: No rashes or lesions Extremities: Warm, dry, well-perfused. No lower extremity edema, erythema or swelling. No calf tenderness. Results & Data ([facility]) Vital Signs (Past 12 Hours) Vital Signs Temp Pulse Resp BP BP Pulse Ox 06/23/21 04:35 36.5 C 89 16 114/76 97 06/23/21 00:15 36.5 C 77 16 109/74 97 06/22/21 19:30 36.8 C 90 16 107/63 97 Resident Activity Tracking Resident Involvement: Resident Care Provided Care Provided: OB Delivery
[2021-06-23] MEDS: DOCUSATE SODIUM 100 MG CAP PO SCH (07:55)
[2021-06-23] MEDS ORDERED: PRENATAL VITAMIN 1 TAB PO SCH (08:00)
== END 2021-06-23 15:15 | disposition home or self-care (01) | DRG 806 ==
LOC: 4S1 07:49 → 4S2 16:55